=== PATIENT | female | born 1960 | race Caucasian/White ===

== ENCOUNTER 2020-11-21 20:32 | Emergency (ER) | payer OTHER, BC ==
[2020-11-21] MEDS ORDERED: Diphtheria,Pertussis(Acell),Tetanus Vaccine 0.5 ML Syringe IM ONE (20:59)
--- NOTE | 2020-11-21 21:05 | EDM.PDOC ---
ED HPI GENERAL MEDICAL PROBLEM - General Chief Complaint: Skin Complaint Stated Complaint: HEAD LACERATION Time Seen by Provider: 11/21/20 20:38 Source of Information: Reports: Patient History Limitations: Reports: No Limitations - History of Present Illness INITIAL COMMENTS - FREE TEXT/NARRATIVE: Aleyda is a 60 year old female who presents to ER with complaints of a laceration to the top of her head. Was mowing the lawn and ran in to a tree branch, cutting her head. She denies loss of consciousness. Ambulated to house to put wet wash cloth on head and went to find her . Gait is normal. Denies headache or dizziness, area is sore. Last tetanus 2011. Onset: Today, Sudden Duration: Minutes: Location: Reports: Head Quality: Reports: Ache Severity: Mild Associated Symptoms: Reports: No Other Symptoms Past Medical History Cardiovascular History: Reports: Hypertension Musculoskeletal History: Reports: Arthritis Social & Family History - Tobacco Use Tobacco Use Status *Q: Unknown Ever Used Tobacco ED ROS GENERAL - Review of Systems Review Of Systems: See Below Constitutional: Reports: No Symptoms Skin: Reports: Wound Neurological: Denies: Dizziness, Headache, Weakness Psychiatric: Reports: No Symptoms ED EXAM, SKIN/RASH Exam: See Below Exam Limited By: No Limitations General Appearance: Alert, WD/WN, No Apparent Distress Eye Exam: Bilateral Eye: PERRL Ears: Normal External Exam, Normal TMs Nose: Normal Inspection, Normal Mucosa, No Blood Throat/Mouth: Normal Inspection, Normal Oropharynx Head: Normocephalic Neck: Normal Inspection, Supple, Non-Tender, Full Range of Motion Neurological: Alert, Oriented Skin: Wound/Incision (7.5 cm laceration to top of scalp) Location, Skin: Head Characteristics: Linear ED SKIN PROCEDURES - Laceration/Wound Repair Left Head Appearance: Subcutaneous, Linear Anesthetic Type: Local Local Anesthesia - Lidocaine (Xylocaine): 1% Plain Local Anesthetic Volume: 4cc Skin Prep: Chlorhexidine (Hibiciens) Exploration/Debridement/Repair: Wound Explored, Explored to Base Closed with: Bruce Lac/Wound length In cm: 7.5 # of Sutures: 16 (bruce) Sterile Dressing Applied: Nurse Tetanus Status Addressed: Yes Complications: No Course - Orders/Labs/Meds Orders: Active Orders 24 hr Category Date Time Status Vaccines to be Administered [RC] PER UNIT ROUTINE Care 11/21/20 20:59 Ordered Diphth,Pertuss(Acell),Tet Vac [Boostrix] Med 11/21/20 20:59 Once 0.5 ml IM .ONCE ONE Medication Orders Diphtheria/Tetanus/Acell Pertussis (Diphtheria,Pertussis(Acell),Tetanus Vaccine 0.5 Ml Syringe) 0.5 ml IM .ONCE ONE Stop: 11/21/20 21:00 Meds: Medications Generic Name Dose Route Start Last Admin Trade Name Freq PRN Reason Stop Dose Admin Diphtheria/Tetanus/Acell Pertussis 0.5 ml 11/21/20 20:59 Diphtheria,Pertussis(Acell),Tetanus Vaccine 0.5 Ml Syringe IM 11/21/20 21:00 .ONCE ONE Discontinued Medications Generic Name Dose Route Start Last Admin Trade Name Freq PRN Reason Stop Dose Admin Lidocaine HCl 5 ml 11/21/20 20:43 Lidocaine 1% 5 Ml Sdv INJECT 11/21/20 20:44 ONETIME ONE Departure - Departure Time of Disposition: 21:08 Disposition: Home, Self-Care 01 Condition: Good Clinical Impression: Laceration of scalp - Discharge Information *PRESCRIPTION DRUG MONITORING PROGRAM REVIEWED*: No *COPY OF PRESCRIPTION DRUG MONITORING REPORT IN PATIENT YANELY: No Instructions: Laceration Care, Adult Forms: ED Department Discharge Additional Instructions: 1. Keep area clean and dry 2. Tylenol for headache or discomfort 3. Monitor wound for any increased redness, drainage, increased pain 4. Return if any changes in mental status 5. [place] out in 5 days 6. Call with any questions or concerns. - My Orders Last 24 Hours: My Active Orders 11/21/20 20:59 Vaccines to be Administered [RC] PER UNIT ROUTINE Diphth,Pertuss(Acell),Tet Vac [Boostrix] 0.5 ml IM .ONCE ONE - Assessment/Plan Last 24 Hours: My Active Orders 11/21/20 20:59 Vaccines to be Administered [RC] PER UNIT ROUTINE Diphth,Pertuss(Acell),Tet Vac [Boostrix] 0.5 ml IM .ONCE ONE
== END 2020-11-21 21:20 | disposition home or self-care (01) ==
LOC: VM.ED 20:32
DX: S01.01XA Laceration without foreign body of scalp, initial encounter (principal); I10 Essential (primary) hypertension; Z23 Encounter for immunization; W26.8XXA Contact with other sharp object(s), not elsewhere classified, initial encounter
CPT/HCPCS: 12002; 90471; 90715; 99282-25; 99283